=== PATIENT | female | born 1960 | race Caucasian/White ===

== ENCOUNTER 2023-06-04 09:04 | Observation (INO) | payer MEDICAID, SELFPAY ==
[2023-06-04] VITALS (22 sets, daily range): BP systolic 113–162; BP diastolic 64–95; PULSE 96–111; RESP 15–30; TEMP 36.5–37.3; O2SAT 94–100
--- NOTE | ~2023-06-04 | CT_ITS ---
EXAMINATION: CTA chest PE protocol DATE: 06/04/2023 10:36 INDICATION: Dyspnea. Tachycardia. Elevated d-dimer. TECHNIQUE: Computed tomography angiography (CTA) of the chest was performed with 100 mL Omnipaque-350 intravenous contrast timed to evaluate the pulmonary arteries. Coronal maximum intensity projection 3D-reconstructions were created by the technologist. Automated exposure control and iterative reconst ruction technique were employed. Exam dose: 431.57 mGy-cm total exam DLP. COMPARISON: None. FINDINGS: There is diagnostic contrast enhancement of the pulmonary arteries and no evidence of pulmo nary embolism. No thoracic aortic aneurysm or dissection. Normal heart size. No pericardial or pleural effusion. No hilar or mediastinal mass lesion or lymphadenopathy. No pulmonary infiltrate or consolidation. Occasional scattered small nodular densities are noted; rec ommend annual lung screening CT given the history of emphysema. Very small sliding hiatal hernia. Diffuse hepatic steatosis. The gallbladder is present. Normal morphology of the adrenal glands. Probable left parapelvic renal cysts. Bilateral renal scarri ng. Prominent degenerative disc disease in the lower cervical spine. Dextroscoliosis and degenerative spurring of the thoracic and upper lumbar spine. No suspicious osteolytic or osteoblastic lesions are noted. IMPRESSION: No evidence of pulmonary embolism Reviewed, dictated and finalized at Location A. Reviewed, dictated and finalized at location B.
--- NOTE | ~2023-06-04 | US_ITS ---
EXAMINATION: US venous doppler [facility] DATE: 06/04/2023 22:15 INDICATION: Lower limb edema. TECHNIQUE: Grayscale ultrasound images without and with compression and Doppler ultrasound images of the bilateral lower extremity veins were obtained. COMPARISON: None. FINDINGS: The visualized portions of right common femoral vein, profunda (deep) femoral vein, femoral vein, pop liteal vein, peroneal veins, posterior tibial veins, and greater saphenous vein outflow are patent. The visualized portions of left common femoral vein, profunda femoral vein, femoral vein, popliteal v ein, peroneal veins, posterior tibial veins, and greater saphenous vein outflow are patent. IMPRESSION: 1. No deep venous thrombosis. Reviewed, dictated and finalized at location E.
--- NOTE | ~2023-06-04 | XR_ITS ---
Portable chest x-ray Comparison: None Clinical History: Dyspnea Findings: Lungs are clear, without focal consolidation or pleural effusion. Cardiomediastinal silho uette is unremarkable. Bones and soft tissues are unremarkable. Impression: Normal chest. Reviewed, dictated and finalized at location M. Impression: Normal chest.
--- NOTE | 2023-06-04 09:14 | ECG_ITS ---
Measurements Intervals [place] Rate: 108 P: 80 VT: 144 QRS: 59 QRSD: 82 T: 62 QT: 337 QTc: 453 Interpretive Statements SINUS TACHYCARDIA NONSPECIFIC ST & T-WAVE ABNORMALITY BASELINE ARTIFACT ABNORMAL RHYTHM ECG NONSPECIFIC ST ABNORMALITY NO PREVIOUS ECG AVAILABLE FOR COMPARISON Electronically Signed On 06-04-2023 17:00:22 CDT by Bobby Eddy M.D.
--- NOTE | 2023-06-04 09:22 | ED.SOB ---
HPI - SOB/Dyspnea General Chief Complaint: Shortness of Breath/Dyspnea <Nicolasa Deleon PA-C - Last Filed: 06/04/23 16:46> Stated Complaint: sob/dyspnea <Nicolasa Deleon PA-C - Last Filed: 06/04/23 16:46> Time Seen by Provider: 06/04/23 09:08 <Nicolasa Deleon PA-C - Last Filed: 06/04/23 16:46> History of Present Illness HPI Narrative: 62-year-old female with history of asthma and COPD reports via EMS for evaluation for dyspnea that started around 0700 this morning. Patient states she was sitting in her chair at home when she began feeling short of breath and having substernal chest tightness. She states this is happened to her before when she has had COPD exacerbations. She also states her cough has worsened today. She denies fever, nausea or vomiting, diaphoresis, bilateral lower extremity edema. Patient was satting 90% on room air via EMS and was placed on nasal cannula and was provided with a DuoNeb in route. She is currently satting 97% on room air. She quit smoking 1 year ago, used to smoke ~1/2ppd for many years. <Nicolasa Deleon PA-C - Last Filed: 06/04/23 16:46> Related Data Home Medications: Home Medications Medication Instructions Recorded Confirmed albuterol sulfate 2.5 mg/3 mL 2.5 mg inhalation Q4-5H PRN 06/04/23 06/04/23 (0.083 %) solution for nebulization Wheezing benzonatate 200 mg capsule 200 mg PO TID PRN Cough 06/04/23 06/04/23 fexofenadine 180 mg tablet 90 mg PO DAILY 06/04/23 06/04/23 fluticasone propionate 230 2 puff inhalation BID 06/04/23 06/04/23 mcg-salmeterol 21 mcg/actuation HFA inhaler (Advair HFA) loratadine 10 mg tablet 10 mg PO DAILY 06/04/23 06/04/23 metoprolol tartrate 25 mg tablet 12.5 mg PO BID 06/04/23 06/04/23 <Nicolasa Deleon PA-C - Last Filed: 06/04/23 16:46> Allergies/Adverse Reactions: Allergies Allergy/AdvReac Type Severity Reaction Status Date / Time No Known Allergies Allergy Verified 06/04/23 16:10 <Nicolasa Deleon PA-C - Last Filed: 06/04/23 16:46> Review of Systems Review of Systems: CONSTITUTIONAL: Denies fever, chills EYES: Denies visual changes, redness, or discharge. ENT: Denies rhinorrhea, congestion, sore throat, or otalgia. CARDIOVASCULAR: See HPI RESPIRATORY: See HPI GASTROINTESTINAL: Denies abdominal pain, nausea, vomiting, or diarrhea. GENITOURINARY: Denies dysuria or hematuria. SKIN: Denies rash or itching. MUSCULOSKELETAL: Denies back pain, joint pain, or myalgia. NEUROLOGIC: Denies headache, numbness, dizziness, or weakness. PSYCHIATRIC: Denies anxiety or depression. <Nicolasa Deleon PA-C - Last Filed: 06/04/23 16:46> [facility] Past Medical History Medical History: Medical History (Updated 06/04/23 @ 16:16 by Pari Amor PA-C) Chronic obstructive pulmonary disease Hypertension Tobacco abuse <Nicolasa Deleon PA-C - Last Filed: 06/04/23 16:46> Surgical History Surgical History: Surgical History (Updated 06/04/23 @ 16:10 by Pari Amor PA-C) History of partial colectomy For bowel obstruction. History of tonsillectomy <Nicolasa Deleon PA-C - Last Filed: 06/04/23 16:46> Family History Family History: Family History (Updated 06/04/23 @ 16:10 by Pari Amor PA-C) Other Family history non-contributory <Nicolasa Deleon PA-C - Last Filed: 06/04/23 16:46> Social History Social History: Social History (Updated 06/04/23 @ 16:12 by Pari Amor PA-C) Social History: The patient lives in [place], [place]. She is retired. Small 0.5 packs of cigarettes a day and has for many years. No alcohol or illicit substance abuse. Surrogate decision maker: Hector Carrera, son. Code status: Full code. Smoking status: Former smoker Alcohol intake: never Substance use: never Substance use type: does not use Lack of Transportation: No Lack of Food: Never True Current Housing: I Have Housing Concerned About Future Ho
[2023-06-04] MEDS: methylPREDNISolone SOD SUCC 125 MG VIAL IV PUSH (09:29)
[2023-06-04] MEDS: MAGNESIUM SULF 2 GM/WATER 50ML 2 GM/50 ML BAG IVPB (09:29)
[2023-06-04 09:32] LABS: Basophils Absolute Auto 0.1 K/mm3 (0.0-0.1); Eosinophils Absolute Auto 0.6 K/mm3 (0-0.3); Eosinophils Percent Auto 9.5 % (0-4.4); Hematocrit 37.3 % (37.0-47.0); Hemoglobin 11.9 g/dL (12.0-15.0); Immature Granulocyte Absolute 0.02 K/mm3 (0.00-0.031); Immature Granulocyte Percent A 0.3 % (0-0.5); Lymphocytes Absolute Auto 1.83 K/mm3 (0.9-3.2); Lymphocytes Percent Auto 30.1 % (18.3-44.2); Mean Corpuscular HGB Conc 31.9 g/dl (32-36); Mean Corpuscular Hemoglobin 30.2 pg (26-34); Mean Corpuscular Volume 94.7 fl (80-100); Mean Platelet Volume 9.2 fl (7.4-10.4); Monocytes Absolute Auto 0.7 K/mm3 (0.1-0.6); Neutrophils Absolute Auto 2.9 K/mm3 (1.3-6.7); Neutrophils Percent Auto 48.1 % (45.5-73.1); Platelet Count Result 264 k/mm3 (150-375); Red Blood Count 3.94 M/mm3 (4.2-5.4); Red Cell Distribution Width 13.3 % (11.5-14.5); White Blood Count 6.1 K/mm3 (4.5-10.0)
[2023-06-04 09:43] LABS: Alanine Aminotransferase 17 U/L (6-35); Albumin Level 3.9 g/dL (3.5-5.1); Alkaline Phosphatase 92 U/L (38-126); Anion Gap 10 mmol/L (8-16); Aspartate Amino Transferase 24 U/L (14-36); Bilirubin,Total 0.6 mg/dL (0.2-1.3); Blood Urea Nitrogen 12 mg/dL (7-17); Carbon Dioxide 20 mmol/L (22-30); Chloride 112 mmol/L (98-107); Estimated CRCL calculation 45 ml/min; Estimated Glomerular Filt Rate 50; Glucose 93 mg/dL (65-110); Lipase 33 U/L (23-300); Potassium 4.1 mmol/L (3.4-5.0); Sodium 142 mmol/L (137-145)
[2023-06-04] MEDS: IPRATROPIUM BR 0.02% INH SOLN 0.5 MG/2.5 ML VIAL INHALATION ×4 (09:43→20:39)
[2023-06-04] MEDS: ALBUTEROL SULFATE NEB 2.5 MG/3 ML INH INHALATION ×4 (09:43→20:39)
[2023-06-04 09:47] LABS: Partial Thromboplastin Time 26.2 SECONDS (22.3-36.8); Prothrombin Time 13.4 Seconds (11.1-14.7)
[2023-06-04 09:49] LABS: Alveolar/Arterial O2 Gradient 33.9 mmHg; Base Excess ABG -1.6 mEq/l (+/-2.0); Fractional Inspired Oxygen 21 %; Oxygen Content ABG 17.4 %vol (16.0-22.0); Oxygen Saturation ABG 96.7 % (95.0-100.0); Oxyhemoglobin 95.5 % THb (90.0-100.0); PCO2 ABG 29.5 mmHg (35.0-45.0); PO2 ABG 80.5 mmHg (80.0-100.0); PO2 FiO2 Ratio Arterial Blood 3.83 %; Total Hemoglobin 12.9 g/dL (12.0-18.0)
[2023-06-04 09:50] LABS: Device ROOM AIR; Modified Allen's Test Pass; Site Drawn RIGHT RADIAL
[2023-06-04 09:54] LABS: NT Pro B Type Natriuretic Pept 346 pg/mL (19.9-100); Troponin I < 0.012 ng/mL (0.000-0.034)
[2023-06-04 09:55] LABS: D Dimer 0.77 ug/mL (<0.48)
[2023-06-04 10:08] LABS: Influenza A QL RT-PCR Negative (Negative); Influenza B QL RT-PCR Negative (Negative); SARS-CoV-2 RNA PCR Negative (Negative)
[2023-06-04] MEDS: SODIUM CHLORIDE 0.9% IV 1,000 ML 999 ML IV CONT ×2 (10:18→12:08)
--- NOTE | 2023-06-04 11:24 | PC.NURSE ---
Hector, son, updated.
[2023-06-04 12:35] LABS: Troponin I < 0.012 ng/mL (0.000-0.034)
[2023-06-04 15:47] LABS: Troponin I < 0.012 ng/mL (0.000-0.034)
--- NOTE | 2023-06-04 16:00 | PM.IMHP ---
H&P: HPI History of Present Illness Date/Time: 06/04/23 14:30 Chief Complaint: Shortness of breath. Narrative: This is a 62-year-old female smoker with COPD presented to the emergency department via EMS from a local motel for evaluation of shortness of breath. The patient provides the following history. She is from [place], [place] and she and her son are on their way back home after visiting [place]; they stopped in the area overnight before driving home tomorrow. This morning she developed a cough which has been really productive of clear mucus and she had a prolonged coughing jag which caused her to feel extremely short of breath and lightheaded. She tried her rescue inhaler which was of no benefit and so she called 911. SpO2 was 90% on room air on EMS arrival and she was given a DuoNeb in route with improvement. She denies syncope, near syncope, exertional chest pain, pleuritic pain, palpitations, sensations of racing heart, nausea, vomiting, diarrhea, and lower extremity edema. She has no calf pain or tenderness. Denies history of venous thromboembolism. No known sick contacts. In the ED: She was afebrile on arrival with stable blood pressures. She has been mildly tachypneic in the low 100s. Pertinent labs include a normal troponin, proBNP 345, D-dimer 0.77, creatinine 1.10, WBC count 6.1. ABG showed a pH of 7.470, pCO2 29.5, bicarb 21. She tested negative for influenza and COVID. Chest x-ray showed normal chest. Chest CTA was negative for PE. She was given a DuoNeb, 125 mg methylprednisolone, and 2 g magnesium sulfate and she is being admitted in this setting for further treatment of COPD exacerbation. Review of Systems Review of Systems: Twelve systems were reviewed and are negative except for as per HPI. [facility] Past Medical History Medical History (Updated 06/04/23 @ 16:16 by Pari Amor PA-C) Chronic obstructive pulmonary disease Hypertension Tobacco abuse Surgical History Surgical History (Updated 06/04/23 @ 16:10 by Pari Amor PA-C) History of partial colectomy For bowel obstruction. History of tonsillectomy Family History Family History (Updated 06/04/23 @ 16:10 by Pari G Gerling, PA-C) Other Family history non-contributory Social History Social History (Updated 06/04/23 @ 16:12 by Pari Amor PA-C) Social History: The patient lives in [place], [place]. She is retired. Small 0.5 packs of cigarettes a day and has for many years. No alcohol or illicit substance abuse. Surrogate decision maker: Hector Carrera, son. Code status: Full code. Meds Home Medications and Allergies Home Medications Medication Instructions Recorded Confirmed Type albuterol sulfate 2.5 mg/3 mL 2.5 mg inhalation Q4-5H PRN 06/04/23 06/04/23 History (0.083 %) solution for nebulization Wheezing benzonatate 200 mg capsule 200 mg PO TID PRN Cough 06/04/23 06/04/23 History fexofenadine 180 mg tablet 90 mg PO DAILY 06/04/23 06/04/23 History fluticasone propionate 230 2 puff inhalation BID 06/04/23 06/04/23 History mcg-salmeterol 21 mcg/actuation HFA inhaler (Advair HFA) loratadine 10 mg tablet 10 mg PO DAILY 06/04/23 06/04/23 History metoprolol tartrate 25 mg tablet 12.5 mg PO BID 06/04/23 06/04/23 History Allergies Allergy/AdvReac Type Severity Reaction Status Date / Time No Known Allergies Allergy Verified 06/04/23 16:10 Vital Signs Vital Signs - 24 hr 06/04/23 09:07 06/04/23 09:17 06/04/23 09:44 Pulse Rate 109 H 98 Respiratory Rate 20 28 H Blood Pressure 160/90 H Pulse Oximetry 95 Oxygen Delivery Room Air Room Air 06/04/23 09:16 06/04/23 09:31 06/04/23 10:15 Pulse Rate 107 H 111 H 99 Respiratory Rate 24 H 24 H 23 H Blood Pressure 152/95 H 143/89 H 148/66 H Pulse Oximetry 95 95 96 Oxygen Delivery 06/04/23 11:52 06/04/23 12:00 06/04/23 12:15 Pulse Rate 107 H 104 H 103 H Respiratory Rate 18 20 21 H Blood Pressure 132/75 128/74 131/72 Pulse O
--- NOTE | 2023-06-04 16:07 | ADMGEN ---
This patient, Sophie Carrera, was admitted to Medical Room 250-01. Patient/family oriented to hospital policies and general routines including ID bracelet, bed and alarms, visiting hours, pain management, procedures, bathroom and other care routines, personal items, smoking policy, room service/diet, and visiting hours. Information on how to activate the Rapid Response Team has been discussed. Patient/Family are encouraged to report perceived risks to care and to ask questions if they do not understand what they are told or what they should do.
[2023-06-04] MEDS: BENZONATATE 100 MG CAPSULE 200 MG PO (16:43)
[2023-06-04] MEDS: AZITHROMYCIN 250 MG TABLET 500 MG PO (16:43)
[2023-06-04] MEDS: methylPREDNISolone SOD SUCC 125 MG VIAL 60 MG IV PUSH (16:45)
[2023-06-04] MEDS: FLUTICASONE/SALMETEROL 230-21 MCG INHALER 1 PUFF 2 PUFF INHALATION (20:40)
[2023-06-04] MEDS: METOPROLOL TARTRATE 12.5 MG TABLET PO (21:32)
[2023-06-04] MEDS: guaiFENesin 12 HR 600 MG TABCR PO (21:32)
[2023-06-04] MEDS: ACETAMINOPHEN 325 MG TABLET 650 MG PO (23:07)
[2023-06-05] VITALS (16 sets, daily range): BP systolic 122–145; BP diastolic 57–74; PULSE 85–110; RESP 14–24; TEMP 36.4–36.8; O2SAT 93–98
[2023-06-05] MEDS: methylPREDNISolone SOD SUCC 125 MG VIAL 60 MG IV PUSH ×3 (00:18→13:19)
[2023-06-05] MEDS: ALBUTEROL SULFATE NEB 2.5 MG/3 ML INH INHALATION ×4 (02:20→21:37)
[2023-06-05] MEDS: IPRATROPIUM BR 0.02% INH SOLN 0.5 MG/2.5 ML VIAL INHALATION ×4 (02:20→21:37)
[2023-06-05 05:57] LABS: Hematocrit 33.5 % (37.0-47.0); Hemoglobin 10.4 g/dL (12.0-15.0); Mean Corpuscular Hemoglobin 30.1 pg (26-34); Mean Corpuscular Volume 97.1 fl (80-100); Mean Platelet Volume 9.6 fl (7.4-10.4); Platelet Count Result 243 k/mm3 (150-375); Red Blood Count 3.45 M/mm3 (4.2-5.4); Red Cell Distribution Width 13.4 % (11.5-14.5); White Blood Count 10.4 K/mm3 (4.5-10.0)
[2023-06-05 06:13] LABS: Anion Gap 9 mmol/L (8-16); Blood Urea Nitrogen 15 mg/dL (7-17); Calcium 8.9 mg/dL (8.4-10.2); Carbon Dioxide 19 mmol/L (22-30); Chloride 112 mmol/L (98-107); Estimated CRCL calculation 50 ml/min; Estimated Glomerular Filt Rate 56; Glucose 176 mg/dL (65-110); Magnesium 2.6 mg/dL (1.6-2.3); Potassium 3.8 mmol/L (3.4-5.0); Sodium 140 mmol/L (137-145)
[2023-06-05] MEDS: FLUTICASONE/SALMETEROL 230-21 MCG INHALER 1 PUFF 2 PUFF INHALATION ×2 (07:38→21:37)
[2023-06-05] MEDS: guaiFENesin 12 HR 600 MG TABCR PO ×2 (08:23→20:38)
[2023-06-05] MEDS: METOPROLOL TARTRATE 12.5 MG TABLET PO ×2 (08:23→20:37)
[2023-06-05] MEDS: LORATADINE 10 MG TABLET PO (08:23)
[2023-06-05] MEDS: AZITHROMYCIN 250 MG TABLET PO (08:23)
[2023-06-05] MEDS: ENOXAPARIN 40 MG/0.4 ML SYRINGE SUB-Q (08:24)
[2023-06-05 08:34] LABS: Free T4 Free Thyroxine Reflex 1.16 ng/dL (0.78-2.19)
--- NOTE | 2023-06-05 12:31 | PM.IMPN ---
Progress Note: A&P Assessment and Plan (1) COPD exacerbation: Code(s): J44.1 - Chronic obstructive pulmonary disease with (acute) exacerbation Status: Acute Assessment and Plan: Continue breathing treatments and inhalers scheduled and p.r.n. Deescalate IV steroids to 40 mg Q8H as patient is improving. (2) Tobacco abuse: Code(s): Z72.0 - Tobacco use Status: Acute Assessment and Plan: Reinforce smoking cessation. Nicotine patch available PRN (3) Hypertension: Code(s): I10 - Essential (primary) hypertension Status: Acute Assessment and Plan: Continue home medications. Blood pressure reviewed on 06/05 (4) Elevated d-dimer: Code(s): R79.89 - Other specified abnormal findings of blood chemistry Status: Acute Assessment and Plan: CTA Chest and venous ultrasound negative. Lovenox for VTE prophylaxis Plan Consider discharge tomorrow if patient does well overnight. Continue nebs/inhalers PRN and scheduled Nicotine patch PRN Deescalate IV steroids due to encouraging patient response to management Time Spent With Patient Time with patient: 25 - 35 minutes Subjective Date/time seen: 06/05/23 12:31 Interval history: 06/05: This is a 62 year old female patient with history of COPD who is admitted for acute exacerbation of COPD. Patient seen this morning after breathing treatment and found to be anxious and jittery. Patient did not understand that COPD and emphysema were the same thing and she thought she was being diagnosed with a new respiratory problem as different words were used than she is used to. She did begin to calm when I explained that COPD is an umbrella term for both emphysema and chronic bronchitis and that it is just another way to say the same thing. Patient on room air. Lungs mostly clear, faint end expiratory wheeze. Patient does have minor rhinorrhea and occasional and sniffling. She reports that she had cold symptoms for couple of days prior to coming to the hospital. COVID and flu testing are negative. Review of Systems Review of Systems: All systems reviewed & are unremarkable except as noted in HPI and below Exam Narrative: General: Andious appearing female sitting up on edge of bed. Weight: 72.2 kg. BMI: 27.3. HEENT: PERRL, EOMI. Sclera anicteric. Oral mucosa moist. Neck: Supple. No lymphadenopathy or JVD. Respiratory: Mildly tachypneic though she appears in no acute respiratory distress. Lung sounds are mostly clear with slight end expiratory wheeze. Cardiovascular: Regular rate/rhythm with S1-S2. Gastrointestinal: Abdomen is soft, nontender, and nondistended with positive bowel sounds. Skin: Warm and dry. Extremities: No cyanosis or clubbing. Trace [place] ankle edema bilaterally, left greater than right (chronic per patient) Neurological: Alert. Cranial nerves 2-12 are grossly intact. No gross focal deficits to casual conversation. Psychiatric: Pleasant and cooperative with appropriate mood and anxious affect. Objective Data Vital Signs Vital Signs: Vital Signs - 24 hr 06/04/23 13:00 06/04/23 13:30 06/04/23 14:00 Temperature Pulse Rate 103 H 105 H 107 H Respiratory Rate 21 H 24 H 30 H Blood Pressure 143/72 H 151/86 H 151/85 H Pulse Oximetry 99 100 98 Oxygen Delivery 06/04/23 14:15 06/04/23 14:30 06/04/23 15:45 Temperature Pulse Rate 109 H 103 H 103 H Respiratory Rate 17 22 H 20 Blood Pressure 113/64 136/85 133/84 Pulse Oximetry 97 97 98 Oxygen Delivery 06/04/23 16:53 06/04/23 16:00 06/04/23 20:41 Temperature 37.3 C Pulse Rate 98 98 96 Respiratory Rate 15 15 22 H Blood Pressure 147/77 H Pulse Oximetry 97 97 Oxygen Delivery Room Air 06/04/23 20:47 06/04/23 20:56 06/04/23 21:32 Temperature Pulse Rate 99 99 Respiratory Rate Blood Pressure Pulse Oximetry 96 Oxygen Delivery Room Air 06/04/23 20:00 06/04/23 20:00 06/05/23 00:00 Temperature 36.5 C 36.8
[2023-06-05] MEDS: methylPREDNISolone SOD SUCC 40 MG VIAL IV PUSH (20:38)
[2023-06-05] MEDS: ACETAMINOPHEN 325 MG TABLET 650 MG PO (21:47)
[2023-06-06] VITALS (8 sets, daily range): BP systolic 130–148; BP diastolic 72–76; PULSE 87–100; RESP 18–20; TEMP 36.5–37.1; O2SAT 95–96
[2023-06-06] MEDS: ALBUTEROL SULFATE NEB 2.5 MG/3 ML INH INHALATION ×3 (02:37→15:40)
[2023-06-06] MEDS: IPRATROPIUM BR 0.02% INH SOLN 0.5 MG/2.5 ML VIAL INHALATION ×3 (02:38→15:41)
[2023-06-06] MEDS: methylPREDNISolone SOD SUCC 40 MG VIAL IV PUSH ×2 (05:14→14:19)
--- NOTE | 2023-06-06 07:39 | PM.IMPN ---
Progress Note: A&P Assessment and Plan (1) COPD exacerbation: Code(s): J44.1 - Chronic obstructive pulmonary disease with (acute) exacerbation Status: Acute Assessment and Plan: Continue breathing treatments and inhalers scheduled and p.r.n. Deescalate IV steroids to 40 mg Q8H as patient is improving. (2) Tobacco abuse: Code(s): Z72.0 - Tobacco use Status: Acute Assessment and Plan: Reinforce smoking cessation. Nicotine patch available PRN (3) Hypertension: Code(s): I10 - Essential (primary) hypertension Status: Acute Assessment and Plan: Continue home medications. Blood pressure reviewed on 06/06 (4) Elevated d-dimer: Code(s): R79.89 - Other specified abnormal findings of blood chemistry Status: Acute Assessment and Plan: CTA Chest and venous ultrasound negative. Lovenox for VTE prophylaxis Plan Consider discharge tomorrow if patient does well overnight. Continue nebs/inhalers PRN and scheduled Nicotine patch PRN Deescalate IV steroids due to encouraging patient response to management Subjective Date/time seen: 06/06/23 07:39 Interval history: HPI obtained from chart, This is a 62-year-old female smoker with COPD presented to the emergency department via EMS from a local motel for evaluation of shortness of breath. The patient provides the following history. She is from [place], [place] and she and her son are on their way back home after visiting [place]; they stopped in the area overnight before driving home tomorrow. This morning she developed a cough which has been really productive of clear mucus and she had a prolonged coughing jag which caused her to feel extremely short of breath and lightheaded. She tried her rescue inhaler which was of no benefit and so she called 911. SpO2 was 90% on room air on EMS arrival and she was given a DuoNeb in route with improvement. She denies syncope, near syncope, exertional chest pain, pleuritic pain, palpitations, sensations of racing heart, nausea, vomiting, diarrhea, and lower extremity edema. She has no calf pain or tenderness. Denies history of venous thromboembolism. No known sick contacts. Interval history, 06/06- Review of Systems Review of Systems: Twelve systems were reviewed and are negative except for as per HPI. All systems reviewed & are unremarkable except as noted in HPI and below Exam Narrative: General: well appearing, well developed, well nourished, appears stated age. HEENT: normocephalic, atraumatic. Mucous membranes moist. EOMI, PERRLA, bilateral sclera anicteric, no conjunctival injection. Neck supple without JVD, lymphadenopathy, or bruit. Respiratory: clear to ascultation bilaterally. No rales/rhonic/wheezes. Cardiovascular: Regular rate and rhythm, normal S1-S2 upon ascultation. No murmurs, rubs, or clicks. PMI is nondisplaced, capillary re-fill less than 3 second. Abdomen: Soft, flat, no pulsatile masses, non-distended and non-tender. No rebound, no guarding. No CVA tenderness, no hepatosplenomegaly. Bowel sounds present to all four quadrants. No high pitch or tinkling sounds, resonant to percussion. Extremities: No cyanosis, clubbing, or edema present. Pulses are palpable 2/2. Active ROM to all four extremities. Neuro: Alert and orientated x 4. PERRLA. Cranial nerves 2-12 intact without focal deficit. Skin: Warm, dry, and intact, without rash, erythema, or lesion. Lines: Incisions: Psych: pleasant, cooperative, normal speech, normal affect, no hallucinations, no dysarthia Objective Data Vital Signs Vital Signs: Vital Signs - 24 hr 06/05/23 07:40 06/05/23 07:51 06/05/23 08:23 Temperature Pulse Rate 110 H 106 H Respiratory Rate 24 H Blood Pressure Pulse Oximetry 93 Oxygen Delivery Room Air 06/05/23 08:00 06/05/23 08:00 06/05/23 12:00 Temperature 97.6 F 98.2 F Pulse Rate 99 99 Respiratory Rate 20 20 Blood Pressure 122/
[2023-06-06] MEDS: FLUTICASONE/SALMETEROL 230-21 MCG INHALER 1 PUFF 2 PUFF INHALATION (08:24)
[2023-06-06] MEDS: BENZONATATE 100 MG CAPSULE 200 MG PO (09:02)
[2023-06-06] MEDS: guaiFENesin 12 HR 600 MG TABCR PO (09:02)
[2023-06-06] MEDS: LORATADINE 10 MG TABLET PO (09:02)
[2023-06-06] MEDS: ENOXAPARIN 40 MG/0.4 ML SYRINGE SUB-Q (09:02)
[2023-06-06] MEDS: METOPROLOL TARTRATE 12.5 MG TABLET PO (09:03)
[2023-06-06] MEDS: AZITHROMYCIN 250 MG TABLET PO (09:03)
--- NOTE | 2023-06-06 10:40 | PM.DS ---
DS: Admitting Diagnosis Discharge Date 06/06 Admitting Diagnosis COPD exacerbation DS: Discharge Diagnosis Discharge Diagnosis (1) COPD exacerbation: Code(s): J44.1 - Chronic obstructive pulmonary disease with (acute) exacerbation Status: Acute (2) Tobacco abuse: Code(s): Z72.0 - Tobacco use Status: Acute (3) Hypertension: Code(s): I10 - Essential (primary) hypertension Status: Acute (4) Elevated d-dimer: Code(s): R79.89 - Other specified abnormal findings of blood chemistry Status: Acute Plan (1) COPD exacerbation: ?Code(s): J44.1 - Chronic obstructive pulmonary disease with (acute) exacerbation ?Status:?Acute ?Assessment and Plan: Continue breathing treatments and inhalers scheduled and p.r.n. Deescalate IV steroids to 40 mg Q8H as patient is improving. (2) Tobacco abuse: ?Code(s): Z72.0 - Tobacco use ?Status:?Acute ?Assessment and Plan: Reinforce smoking cessation. Nicotine patch available PRN (3) Hypertension: ?Code(s): I10 - Essential (primary) hypertension ?Status:?Acute ?Assessment and Plan: Continue home medications. Blood pressure reviewed on 06/05 (4) Elevated d-dimer: ?Code(s): R79.89 - Other specified abnormal findings of blood chemistry ?Status:?Acute ?Assessment and Plan: CTA Chest and venous ultrasound negative. Lovenox for VTE prophylaxis Plan Consider discharge tomorrow if patient does well overnight. Continue nebs/inhalers PRN and scheduled Nicotine patch PRN Deescalate IV steroids due to encouraging patient response to management DS: Summary Hospital Course Hospital Course: HPI obtained from chart, This is a 62-year-old female smoker with COPD presented to the emergency department via EMS from a local motel for evaluation of shortness of breath. The patient provides the following history. She is from [place], [place] and she and her son are on their way back home after visiting [place]; they stopped in the area overnight before driving home tomorrow. This morning she developed a cough which has been really productive of clear mucus and she had a prolonged coughing jag which caused her to feel extremely short of breath and lightheaded. She tried her rescue inhaler which was of no benefit and so she called 911. SpO2 was 90% on room air on EMS arrival and she was given a DuoNeb in route with improvement. She denies syncope, near syncope, exertional chest pain, pleuritic pain, palpitations, sensations of racing heart, nausea, vomiting, diarrhea, and lower extremity edema. She has no calf pain or tenderness. Denies history of venous thromboembolism. No known sick contacts. Interval history, 06/06-patient is seen today resting in bed in no acute distress. She says that she feels 100% better from when she 1st presented to the ER. She is saturating well on room air. Lung sounds are diminished throughout but clear with no expiratory wheeze. She is able to carry on full sentences without shortness of breath. She is from [place] and has a for a drive home. She was down in [place] for a fundraising walk. She plans to stay in the motel for the next 1-2 days before driving back home. Clinically she looks well, vitals are stable, and labs have been reviewed. She complains of constipation would like a stool softener. Status at Discharge Cognitive/behavioral status at discharge: A&O x4, independent Time Spent with Patient Time attestation: Total time spent providing and/or coordinating discharge services: 40 Exam Narrative: General: chronically ill appearing, well developed, well nourished, appears stated age. HEENT: normocephalic, atraumatic. Mucous membranes moist. EOMI, PERRLA, bilateral sclera anicteric, no conjunctival injection. Neck supple without JVD, lymphadenopathy, or bruit. Respiratory: clear to auscultation bilaterally. No rales/rhonic/wheezes. Cardiovascular: Regular rate and r
[2023-06-06] MEDS: SENNA/DOCUSATE SODIUM TABLET 1 TAB PO (11:37)
== END 2023-06-06 19:15 | disposition home or self-care (01) ==
LOC: ANHED 14:15 → ANH2MED 06-05 09:00
PROVIDERS: Physician Assistant; Admitting Provider Internal Medicine; Emergency Provider Emergency Medicine; Visit Provider Family Medicine
DX: J44.1 Chronic obstructive pulmonary disease with (acute) exacerbation (principal); Z87.891 Personal history of nicotine dependence; I10 Essential (primary) hypertension; R06.82 Tachypnea, not elsewhere classified; R00.0 Tachycardia, unspecified; R94.31 Abnormal electrocardiogram [ECG] [EKG]; R60.0 Localized edema; Z20.822 Contact with and (suspected) exposure to COVID-19; R79.1 Abnormal coagulation profile; Z79.51 Long term (current) use of inhaled steroids; Z79.899 Other long term (current) drug therapy
CPT/HCPCS: 36415; 36600; 71045; 71275; 80048; 80053; 82805; 83690; 83735; 83880; 84439; 84443; 84480; 84484; 85025; 85027; 85380; 85610; 85730; 87636; 93005; 93970; 94640; 96361; 96365; 96366; 96374; 96375; 96376; 99285; A9270; G0378; J1650; J2920; J2930; J3475; J7030; Q9967